=== PATIENT | female | born 1935 | race Caucasian/White ===

== ENCOUNTER → 2018-08-03 | Outpatient (CLI) | payer MEDICARE, BC ==
--- NOTE | 2018-08-06 10:10 | CONS ---
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 Until 1 week ago she tolerated her pain very well. Over the last week she had significant pain however it has been improving somewhat. At this time she has not exhausted conservative treatment. She would like to try a steroid injection today. And possibly a lateral sessions clerk brace in the future given her severe valgus deformity and partially correctable deformity with pseudolaxity. Plan: Right knee steroid injection Rest Ice Follow-up 3 months for reevaluation for possible repeat steroid injection and/or addition of brace. Assessment/Plan (Daily) Right knee steroid injection procedure: Risks and benefits of steroid injection reviewed with patient. The risks include infection, failure, pain, swelling, nerve/tendon/ligament damage. The patient verbalized understanding and verbal consent was obtained prior to procedure. The right knee was prepped in a sterile fashion with alcohol and betadine the site of injection was confirmed. Lateral approach was used. The skin and capsule was anesthetized with 3mL 1% lidocaine. The right knee was injected with 2mL 1% lidocaine, 2mL 0.25% bupivacaine, 40mg Depo-Medrol. Injection flowed freely. Good hemostasis was achieved and no complications noted. The patient tolerated the procedure well. Limit activity and ice for 24-48 hours Consultation Date/Type/Reason Admit Date/Time Date of Consultation: Aug 03, 2018 Reason for Consultation Right knee pain Date/Time of Note DATE: 08/06/18 TIME: 10:01 Hx of Present Illness This Is a 83-year-old female with a chief complaint of right knee pain. The pain began approximately 1 week ago. The patients pain is in the lateral and posterior aspect of the right knee. Pain is not radiating to the lower leg. The pain is rated as a 5/10 today. When it started 1 week ago it was 10/10. Patient denies complaints of numbness or tingling. The pain is exacerbated by climbing stairs and ambulation. Pain is not relieved by NSAID's. Patient has been taking Aleve on a p.r.n. basis as well as using ice. Duration: 1 week Injury: No Walking tolerance: 1 block Limp: No Support: No Swelling: No Crepitation: Yes Instability: Yes Stairs: Place both feet on a step before proceeding the next. Uses banister. Physical Therapy: No Injections: No NSAIDs: Aleve as needed Prior surgery: None Back pain: Yes Hip pain: No Risk of AVN : No Patient denies fever, chills, shortness of breath, chest pain, nausea/vomiting, constipation, diarrhea, numbness, and tingling. Past Medical History Hypertension Pulmonary embolism 2013 Mitral valve prolapse status post repair GERD Hypothyroidism Gout Breast cancer Visual loss Past Surgical History Mitral valve repair 2013 Social History Alcohol Use: rarely Smoking Status: Never smoker Drug Use: none Exam/Review of Systems Exam Vitals Weight: 155 Height: Wound 5 foot 2 inches Heart Rate: 64 Blood Pressure: 171/79 Exam General: Alert, oriented x3. No Acute Distress. Heart: Regular rate and rhythm. Lungs: No respiratory distress. No accessory muscle use. Musculoskeletal: Right Knee This is a well developed female who is alert, oriented times three and in no apparent distress. Skin is intact over the right knee as well as the lower extremity with no abrasions, lacerations, or ulcerations. Observation of the patient's gait reveals an antalgic gait with Valgus thrust. Frontal plane alignment is 20 degrees of valgus. There is pain on palpation of lateral greater than medial joint line. The patient demonstrates grinding anteriorly with ROM. Range of motion: 5 extension to approximately 120 degrees of flexion. Collateral ligament testing reveals no instability with varus or valgus stress at 0 and 30 degrees of flexion. Valgus deformity is partially correctable. Negative John's and negative posterior drawer. Neurovascularly intact with 5/5 EHL/tibialis anterior/gastroc. Sensation intact to light touch in a sural, saphenous, deep peroneal, superficial peroneal, medial and lateral plantar nerve distribution. Palpable, symmetric dorsalis pedis and posterior tibial pulses in both lower extremities. Hip examination normal. Imaging Imaging The patient received a standard set of films today that were personally reviewed. Imaging included a standing bilateral knee AP, PA flexion, merchant views and a dedicated lateral of the affected knee: There is valgus alignment of the knee. There is complete loss of joint space in the lateral compartment and moderate loss of joint space medial compartment(s). There is osteophyte formation. There is subchondral sclerosis. There are subchon dral cysts. Degenerative changes are most severe in the lateral compartment(s) JOHN TONY MD Aug 06, 2018 10:10
--- NOTE | 2018-08-07 07:39 | RADRPT ---
PROCEDURE: Bilateral knee series CLINICAL INDICATION: Pain TECHNIQUE: AP weightbearing, PA axial weightbearing, and sunrise views were obtained of both knees and a right lateral weightbearing view was obtained. COMPARISON: None FINDINGS: Severe tricompartment degenerate joint disease of both knees worse involving the right knee worse inv olving the right lateral compartment and medial left compartment. Small right knee joint effusion. No acute fractures or dislocations. No focal bony blastic or lytic lesions. Soft tissues are otherwise unremarkable. IMPRESSION: 1. Severe degenerate joint disease of both knees worse on the right without acute fractures or dislo cations. 2. Small right knee joint effusion. RPTAT:AAJJ Physician Atif Date Time Electronically viewed and signed by Cely Pace Physician on 08/07/2018 07:39 /
== END | disposition home or self-care (01) ==
LOC: HKI 15:04
PROVIDERS: ATTEND Orthopaedic Surgery Adult Reconstructive Orthopaedic Surgery
DX: M17.11 Unilateral primary osteoarthritis, right knee (principal); M85.40 Solitary bone cyst, unspecified site
CPT/HCPCS: 20610; 73564; C1721; C1895; C1898; G0463